=== PATIENT | male | born 1965 | race Two or more races ===

== ENCOUNTER 2018-11-08 17:46 | Inpatient (IN) | payer OTHER ==
[2018-11-08 18:36] VITALS: BMI 29.9
--- NOTE | 2018-11-08 21:01 | HP ---
CIWA Score Nausea/Vomitin-Mild Nausea/No Vomiting Muscle Tremors: 1-None Visible, but [place] Anxiety: 4-Mod. Anxious/Guarded Agitation: 4-Moderately Restless Paroxysmal Sweats: 1-Minimal Palms Moist Orientation: 3-Disoriented Date>2 days Tacttile Disturbances: 2-Mild Itch/Numbness/Burn Auditory Disturbances: 0-None Visual Disturbances: 1-Very Mild Sensitivity Headache: 2-Mild CIWA-Ar Total Score: 19 - Admission Criteria OASAS Guidelines: Admission for Medically Managed Detox: Requires at least one of the followin. CIWA greater than 12 2. Seizures within the past 24 hours 3. Delirium tremens within the past 24 hours 4. Hallucinations within the past 24 hours 5. Acute intervention needed for co occurring medical disorder 6. Acute intervention needed for co occurring psychiatric disorder 7. Severe withdrawal that cannot be handled at a lower level of care (continued vomiting, continued diarrhea, abnormal vital signs) requiring intravenous medication and/or fluids 8. Patient presents the following: CIWA greater than 12, Acute intervention needed for co-occurring med or psych disorder Admission Criteria Met: Admission criteria met Admission ROS [facility] Chief Complaint: C/O WORSENING WITHDRAWAL SX'S. SEEKING DETOX TXMENT FOR ALCOHOLISM Allergies/Adverse Reactions: Allergies Allergy/AdvReac Type Severity Reaction Status Date / Time Penicillins Allergy Verified 04/19/18 20:41 shellfish derived Allergy Verified 04/19/18 20:41 History of Present Illness: 52 Y.O. MALE WITH ALCOHOLISM HERE FOR DETOX. CLIENT IS KNOWN TO THIS PROGRAM. LAST ADMISSION FROM 04/19/18- 04/23/2018. HE IS SELF REFERRED TODAY. REPORTS LONGEST CLEAN TIME 8 MONTHS. DENIES ANY CLEAN TIME IN THE PAST YEAR. SEVERAL INAPTIENT ADMISSION BUT CONTINUES TO STRUGGLE WITH SOBRIETY WITH FREQUENT RELAPSING. HE IS ALSO OPIOID DEPENDENT. REPORTS HE IS ON METHADONE 50MG LAST MEDICATED TODAY AT [facility]. DENIES PAST/PRESENT SI/HI, AVH, SEIZURE D/O, DRUG OVERDOSE. CURRENTLY IN ASSISTED SYSTEM, UNEMPLOYED. DENIES LEGALS PMHX- ASTHMA, PSYCH- HX/O BIPOLAR Exam Limitations: No Limitations - Ebola screening Have you traveled outside of the country in the last 21 days: No (N) Have you had contact with anyone from an Ebola affected area: No Have you been sick,other than usual withdrawal symptoms: No Do you have a fever: No - Review of Systems Constitutional: Chills, Loss of Appetite, Malaise, Night Sweats EENT: reports: Dental Problems (MISSING TEETH) Respiratory: reports: Shortness of Breath Cardiac: reports: No Symptoms Reported GI: reports: Nausea, Poor Appetite, Poor Fluid Intake : reports: No Symptoms Reported Musculoskeletal: reports: Back Pain, Muscle Pain Integumentary: reports: No Symptoms Reported Neuro: reports: Tremors (FELT) Endocrine: reports: No Symptoms Reported Hematology: reports: No Symptoms Reported Psychiatric: reports: Anxious Other Systems: Reviewed and Negative Patient History - Patient Medical History Hx Anemia: No Hx Asthma: Yes Hx Chronic Obstructive Pulmonary Disease (COPD): No Hx Cancer: No Hx Cardiac Disorders: No Hx Congestive Heart Failure: No Hx Hypertension: No Hx Hypercholesterolemia: No Hx Pacemaker: No HX Cerebrovascular Accident: No Hx Seizures: No Hx Dementia: No Hx Diabetes: No Hx Gastrointestinal Disorders: No Hx Liver Disease: No Hx Genitourinary Disorders: No Hx Sexually Transmitted Disorders: No Hx Renal Disease (ESRD): No Hx Thyroid Disease: No Hx Human Immunodeficiency Virus (HIV): No Hx Hepatitis C: No Hx Depression: No Hx Suicide Attempt: No Hx Bipolar Disorder: Yes Hx Schizophrenia: No - Patient Surgical History Past Surgical History: Yes Other Surgical History: toncilectomy age 12 Anesthesia Reaction: No - PPD History Previous Implant?: Yes Documented Results: Negative w/o proof Implanted On Prior [facility] Admission?: Yes Date: 04/22/18 Results: NO READING DOCU PPD to be Administered?: Yes - Smoking Cessation Smoking history: Current every day smoker Have you smoked in the past 12 months: Yes Aproximately how many cigarettes per day: 10 Cigars Per Day: 0 Hx Chewing Tobacco Use: No Initiated information on smoking cessation: Yes 'Breaking Loose' booklet given: 11/08/18 - Substance & Tx. History Hx Alcohol Use: Yes Hx Substance Use: Yes Substance Use Type: Alcohol Hx Substance Use Treatment: Yes ([facility]) - Substances Abused LIQUOR Route: Oral Frequency: Daily Amount used: 1 PINT Age of first use: 20 Date of Last Use: 11/08/18 Family Disease History - Family Disease History Family Disease History: Other: Mother (, asthma ) Admission Physical Exam [facility] - Vital Signs Vital Signs: Vital Signs - 24 hr 11/08/18 18:35 Temperature 97.8 F Pulse Rate 94 H Respiratory 18 Rate Blood Pressure 121/90 - Physical General Appearance: Yes: Disheveled, Tremorous (FELT), Sweating (MOIST SKIN), Anxious, Other (MALODUROUS) HEENTM: Yes: EOMI, Normocephalic, Normal Voice, SCOUT, Pharynx Normal, Other ( POOR DENTITION, MISSING TEETH, DISCOLORED) Respiratory: Yes: Chest Non-Tender, Lungs Clear, Normal Breath Sounds, No Respiratory Distress, No Accessory Muscle Use Neck: Yes: No masses,lesions,Nodules, Supple, Trachea in good position Breast: Yes: Breast Exam Deferred Cardiology: Yes: Regular Rhythm, Regular Rate, S1, S2 Abdominal: Yes: Normal Bowel Sounds, Non Tender, Soft Genitourinary: Yes: Other (NO C/O OFFERED) Back: Yes: Normal Inspection Musculoskeletal: Yes: full range of Motion, Gait Steady Extremities: Yes: Normal Capillary Refill, Normal Range of Motion, Non-Tender, Tremors (FELT) 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: Yes: Alert, Motor Strength 5/5 Integumentary: Yes: Cold, Moist Lymphatic: Yes: Within Normal Limits - Diagnostic (1) At risk for dehydration due to poor fluid intake Current Visit: Yes Status: Acute (2) Alcohol dependence with withdrawal Current Visit: Yes Status: Acute Qualifiers: Complication of substance-induced condition: uncomplicated Qualified Code(s ): F10.230 - Alcohol dependence with withdrawal, uncomplicated (3) Asthma Current Visit: Yes Status: Chronic Qualifiers: Asthma severity: mild Asthma persistence: intermittent Asthma complication type: with acute exacerbation Qualified Code(s): J45.21 - Mild intermittent asthma with (acute) exacerbation (4) Opioid dependence on agonist therapy Current Visit: Yes Status: Chronic Comment: methadone 50 mg, dose pending verification Cleared for Admission S - Detox or Rehab [facility] Level of Care: Medically Managed Detox Regimen/Protocol: Zane Siued for Rehab Admission: No [facility] Breath Alcohol Content Breath Alcohol Content: 0 Urine Drug Screen - Results Drug Screen Negative: No Urine Drug Screen Results: MTD-Methadone
[2018-11-08] MEDS ORDERED: MAGNESIUM CITRATE 300 ML BOTTLE PO PRN (21:07)
[2018-11-08] MEDS ORDERED: NICOTINE POLACRILEX 2 MG GUM BC PRN (21:07)
[2018-11-08] MEDS ORDERED: chlordiazePOXIDE HCL 25 MG CAPSULE PO PRN (21:07)
[2018-11-08] MEDS ORDERED: guaiFENesin/D-METHORPHAN HB 10 ML UNIT-DOSE CUPS PO PRN (21:07)
[2018-11-08] MEDS ORDERED: MAGNESIUM HYDROX 2400MG/30ML ORAL SUSPENSION 30 ML CUP PO PRN (21:07)
[2018-11-08] MEDS ORDERED: MENTHOL/PHENOL 1 EACH UD MM PRN (21:07)
[2018-11-08] MEDS ORDERED: IBUPROFEN 400 MG TABLET (FP) PO PRN (21:07)
[2018-11-08] MEDS ORDERED: LOPERAMIDE HCL 2 MG CAPSULE PO PRN (21:07)
[2018-11-08] MEDS ORDERED: hydrOXYzine PAMOATE 50 MG CAPSULE (FP) PO PRN (21:07)
[2018-11-08] MEDS ORDERED: P-EPHED 60MG/TRIPROLIDI 2.5MG TABLET PO PRN (21:07)
[2018-11-08] MEDS ORDERED: ALBUTEROL SO4 8 GM HFA INHALER IH PRN (21:07)
[2018-11-08] MEDS ORDERED: ACETAMINOPHEN 325 MG TABLET (FP) PO PRN (21:07)
[2018-11-08] MEDS ORDERED: MAG HYDROX/AL HYDROX/SIMETH 30 ML UNIT-DOSE CUP PO PRN (21:07)
[2018-11-08] MEDS ORDERED: MELATONIN 5 MG TABLETS PO PRN (22:00)
[2018-11-09] MEDS: THIAMINE HCL 100 MG TABLET (FP) PO SCH ×2 (00:01→22:37)
[2018-11-09] MEDS: chlordiazePOXIDE HCL 25 MG CAPSULE PO SCH ×5 (00:02→22:37)
[2018-11-09] MEDS ORDERED: METHADONE 40 MG, METHADONE 10 MG PO ONE (10:00)
[2018-11-09] MEDS ORDERED: METHADONE HCL 10 MG TABLET PO ONE (10:00)
[2018-11-09 10:03] LABS: HEMATOCRIT 45.7 % (35.4-49); HEMOGLOBIN 15.4 GM/dL (11.7-16.9); MCH 29.6 pg (25.7-33.7); MCHC 33.7 g/dl (32.0-35.9); MEAN CELL VOLUME 87.9 fl (80-96); MEAN PLT VOLUME 7.6 fl (7.5-11.1); PLATELET COUNT 305 K/MM3 (134-434); RDW 13.5 % (11.9-15.9); WHITE BLOOD COUNT 9.6 K/mm3 (4.0-10.0)
[2018-11-09] MEDS ORDERED: METHADONE HCL 10 MG TABLET ONE (10:10)
[2018-11-09] MEDS: PRENATAL VITAMINS W/ FOLIC ACID TABLET (FP) PO SCH (10:10)
[2018-11-09] MEDS ORDERED: METHADONE HCL 40 MG DISPERSABLE TABLET ONE (10:11)
[2018-11-09] MEDS: NICOTINE 14 MG/24 HOURS TOPICAL PATCH TD SCH (10:11)
[2018-11-09 10:59] LABS: ALBUMIN 3.5 g/dl (3.4-5.0); ALK PHOS 102 U/L (45-117); ANION GAP 7 MMOL/L (8-16); BILIRUBIN,TOTAL 0.5 mg/dL (0.2-1); BLOOD UREA NITROGEN 24 mg/dL (7-18); CALCIUM 8.5 mg/dL (8.5-10.1); CHLORIDE 104 mmol/L (98-107); CO2 30 mmol/L (21-32); CREATININE 0.9 mg/dL (0.55-1.3); GLUCOSE,RANDOM 82 mg/dL (74-106); POTASSIUM 3.9 mmol/L (3.5-5.1); SGOT/AST 10 U/L (15-37); SGPT/ALT 16 U/L (13-61); SODIUM 141 mmol/L (136-145); TOT PROT 6.5 g/dl (6.4-8.2)
[2018-11-09] MEDS: RANITIDINE HCL 150 MG TABLET (FP) PO SCH ×2 (12:43→22:37)
[2018-11-09 23:01] LABS: URINE APPEARANCE TURBID; URINE BILIRUBIN NEGATIVE (<2.0 mg/dL); URINE COLOR YELLOW; URINE GLUCOSE (UA) NEGATIVE (NEGATIVE); URINE KETONE NEGATIVE (NEGATIVE); URINE LEUK ESTERASE NEGATIVE (NEGATIVE); URINE NITRITE NEGATIVE (NEGATIVE); URINE PROTEIN NEGATIVE (NEGATIVE)
[2018-11-10] MEDS ORDERED: METHADONE HCL 10 MG TABLET ONE (04:24)
[2018-11-10] MEDS ORDERED: METHADONE HCL 40 MG DISPERSABLE TABLET ONE (04:25)
[2018-11-10] MEDS: METHADONE 40 MG, METHADONE 10 MG PO SCH (05:05)
[2018-11-10] MEDS: chlordiazePOXIDE HCL 25 MG CAPSULE PO SCH ×3 (05:05→17:26)
[2018-11-10] MEDS ORDERED: METHADONE HCL 10 MG TABLET PO SCH (06:00)
[2018-11-10] MEDS: RANITIDINE HCL 150 MG TABLET (FP) PO SCH ×2 (10:15→22:41)
[2018-11-10] MEDS: PRENATAL VITAMINS W/ FOLIC ACID TABLET (FP) PO SCH (10:15)
[2018-11-10] MEDS: NICOTINE 14 MG/24 HOURS TOPICAL PATCH TD SCH (10:15)
[2018-11-10] MEDS ORDERED: TRIMETHOBENZAMIDE HCL 300 MG CAPSULE PO PRN (14:38)
--- NOTE | 2018-11-10 17:43 | PN ---
S CIWA - CIWA Score Nausea/Vomitin Muscle Tremors: None Anxiety: 0-No Anxiety, at Ease Agitation: 0-Normal Activity Paroxysmal Sweats: 3 Orientation: 0-Oriented Tacttile Disturbances: 1-Very Mild Itch/Numbness Auditory Disturbances: 1-Very Mild Visual Disturbances: 2-Mild Sensitivity Headache: 0-None Present CIWA-Ar Total Score: 10 [facility] Progress Note (SOAP) Subjective: Chills, Sweating, Interrupted Sleep, Nausea, Diarrhea. Objective: PATIENT A & O X 3, OBSERVED AMBULATING ON UNIT. IN NO ACUTE DISTRESS. 11/10/18 17:44 Vital Signs Temperature 97.2 F L 11/10/18 13:18 Pulse Rate 76 11/10/18 13:18 Respiratory Rate 18 11/10/18 13:18 Blood Pressure 145/90 11/10/18 13:18 O2 Sat by Pulse Oximetry (%) Laboratory Tests 11/09/18 11/09/18 11/09/18 07:00 07:00 07:00 WBC 9.6 RBC 5.20 Hgb 15.4 Hct 45.7 MCV 87.9 MCH 29.6 MCHC 33.7 RDW 13.5 Plt Count 305 MPV 7.6 Sodium 141 Potassium 3.9 Chloride 104 Carbon Dioxide 30 Anion Gap 7 L BUN 24 H Creatinine 0.9 Creat Clearance w eGFR > 60 Random Glucose 82 Calcium 8.5 Total Bilirubin 0.5 AST 10 L ALT 16 Alkaline Phosphatase 102 Total Protein 6.5 Albumin 3.5 Urine Color Urine Appearance Urine pH Ur Specific [place] Urine Protein Urine Glucose (UA) Urine Ketones Urine Blood Urine Nitrite Urine Bilirubin Urine Urobilinogen Ur Leukocyte Esterase RPR Titer Nonreactive 11/09/18 15:12 WBC RBC Hgb Hct MCV MCH MCHC RDW Plt Count MPV Sodium Potassium Chloride Carbon Dioxide Anion Gap BUN Creatinine Creat Clearance w eGFR Random Glucose Calcium Total Bilirubin AST ALT Alkaline Phosphatase Total Protein Albumin Urine Color Yellow Urine Appearance Turbid Urine pH 5.0 Ur Specific [place] 1.033 Urine Protein Negative Urine Glucose (UA) Negative Urine Ketones Negative Urine Blood Negative Urine Nitrite Negative Urine Bilirubin Negative Urine Urobilinogen 2.0 Ur Leukocyte Esterase Negative RPR Titer LABS NOTED. Assessment: 11/10/18 17:45 WITHDRAWAL SYMPTOMS. Plan: CONTINUE DETOX. INCREASE DAILY PO FLUID INTAKE. BP NOTED TO BE SLIGHTLY ELEVATED DURING AM VITAL SIGNS ASSESSMENT. WILL CONTINUE TO MONITOR.
[2018-11-10] MEDS: chlordiazePOXIDE 5 MG CAPSULE PO SCH (22:41)
[2018-11-10] MEDS: THIAMINE HCL 100 MG TABLET (FP) PO SCH (22:41)
[2018-11-11] MEDS ORDERED: METHADONE HCL 10 MG TABLET ONE (04:49)
[2018-11-11] MEDS ORDERED: METHADONE HCL 40 MG DISPERSABLE TABLET ONE (04:49)
[2018-11-11] MEDS: METHADONE 40 MG, METHADONE 10 MG PO SCH (05:40)
[2018-11-11] MEDS: chlordiazePOXIDE 5 MG CAPSULE PO SCH ×3 (05:41→17:56)
[2018-11-11] MEDS: RANITIDINE HCL 150 MG TABLET (FP) PO SCH ×2 (10:10→22:34)
[2018-11-11] MEDS: NICOTINE 14 MG/24 HOURS TOPICAL PATCH TD SCH (10:10)
[2018-11-11] MEDS: PRENATAL VITAMINS W/ FOLIC ACID TABLET (FP) PO SCH (10:10)
--- NOTE | 2018-11-11 15:22 | PN ---
S CIWA - CIWA Score Nausea/Vomitin Muscle Tremors: 2 Anxiety: 0-No Anxiety, at Ease Agitation: 0-Normal Activity Paroxysmal Sweats: 3 Orientation: 0-Oriented Tacttile Disturbances: 2-Mild Itch/Numbness/Burn Auditory Disturbances: 0-None Visual Disturbances: 0-None Headache: 3-Moderate CIWA-Ar Total Score: 13 S Progress Note (SOAP) Subjective: Sweating, H/A, Tremors, Diarrhea, Stomach Cramping, Nausea. Objective: PATIENT A & O X 3, OBSERVED AMBULATING ON UNIT. IN NO ACUTE DISTRESS. 11/11/18 15:19 Vital Signs Temperature 98.1 F 11/11/18 13:56 Pulse Rate 64 11/11/18 13:56 Respiratory Rate 16 11/11/18 13:56 Blood Pressure 133/81 11/11/18 13:56 O2 Sat by Pulse Oximetry (%) Laboratory Tests 11/09/18 11/09/18 11/09/18 07:00 07:00 07:00 WBC 9.6 RBC 5.20 Hgb 15.4 Hct 45.7 MCV 87.9 MCH 29.6 MCHC 33.7 RDW 13.5 Plt Count 305 MPV 7.6 Sodium 141 Potassium 3.9 Chloride 104 Carbon Dioxide 30 Anion Gap 7 L BUN 24 H Creatinine 0.9 Creat Clearance w eGFR > 60 Random Glucose 82 Calcium 8.5 Total Bilirubin 0.5 AST 10 L ALT 16 Alkaline Phosphatase 102 Total Protein 6.5 Albumin 3.5 Urine Color Urine Appearance Urine pH Ur Specific [place] Urine Protein Urine Glucose (UA) Urine Ketones Urine Blood Urine Nitrite Urine Bilirubin Urine Urobilinogen Ur Leukocyte Esterase RPR Titer Nonreactive 11/09/18 15:12 WBC RBC Hgb Hct MCV MCH MCHC RDW Plt Count MPV Sodium Potassium Chloride Carbon Dioxide Anion Gap BUN Creatinine Creat Clearance w eGFR Random Glucose Calcium Total Bilirubin AST ALT Alkaline Phosphatase Total Protein Albumin Urine Color Yellow Urine Appearance Turbid Urine pH 5.0 Ur Specific [place] 1.033 Urine Protein Negative Urine Glucose (UA) Negative Urine Ketones Negative Urine Blood Negative Urine Nitrite Negative Urine Bilirubin Negative Urine Urobilinogen 2.0 Ur Leukocyte Esterase Negative RPR Titer LABS NOTED. Assessment: 11/11/18 15:20 WITHDRAWAL SYMPTOMS. Plan: CONTINUE DETOX. INCREASE DAILY PO FLUID INTAKE. PRN IMMODIUM PO FOR DIARRHEA. PRN TIGAN PO FOR NASUEA.
[2018-11-11] MEDS: THIAMINE HCL 100 MG TABLET (FP) PO SCH (22:34)
[2018-11-11] MEDS: chlordiazePOXIDE HCL 10 MG CAPSULE PO SCH (22:34)
[2018-11-12] MEDS ORDERED: METHADONE HCL 40 MG DISPERSABLE TABLET ONE (03:26)
[2018-11-12] MEDS ORDERED: METHADONE HCL 10 MG TABLET ONE (03:26)
[2018-11-12] MEDS: chlordiazePOXIDE HCL 10 MG CAPSULE PO SCH ×2 (05:52→10:36)
[2018-11-12] MEDS: METHADONE 40 MG, METHADONE 10 MG PO SCH (05:52)
[2018-11-12] MEDS: PRENATAL VITAMINS W/ FOLIC ACID TABLET (FP) PO SCH (10:36)
[2018-11-12] MEDS: RANITIDINE HCL 150 MG TABLET (FP) PO SCH (10:36)
[2018-11-12] MEDS: NICOTINE 14 MG/24 HOURS TOPICAL PATCH TD SCH (10:36)
--- NOTE | 2018-11-12 14:28 | DS ---
[facility] Detox Discharge Summary Admission Date: 11/08/18 Discharge Date: 11/12/18 - History Present History: Alcohol Dependence, Opioid Dependence, MMTP Additional Comments: Patient is A/A/Ox3, in nad, vss, ambulatory. Patient requested to be discharged today even though his MMTP program might be closed tomorrow. Patient stated that he will be fine and just wants to be discharged today instead of waiting until tomorrow. Pertinent Past History: Asthma GERD - Physical Exam Results Vital Signs: Vital Signs Temperature 96.8 F L 11/12/18 10:00 Pulse Rate 73 11/12/18 10:00 Respiratory Rate 20 11/12/18 10:00 Blood Pressure 127/80 11/12/18 10:00 O2 Sat by Pulse Oximetry (%) Pertinent Admission Physical Exam Findings: Withdrawal symptoms Laboratory Tests 11/09/18 11/09/18 11/09/18 07:00 07:00 07:00 WBC 9.6 RBC 5.20 Hgb 15.4 Hct 45.7 MCV 87.9 MCH 29.6 MCHC 33.7 RDW 13.5 Plt Count 305 MPV 7.6 Sodium 141 Potassium 3.9 Chloride 104 Carbon Dioxide 30 Anion Gap 7 L BUN 24 H Creatinine 0.9 Creat Clearance w eGFR > 60 Random Glucose 82 Calcium 8.5 Total Bilirubin 0.5 AST 10 L ALT 16 Alkaline Phosphatase 102 Total Protein 6.5 Albumin 3.5 Urine Color Urine Appearance Urine pH Ur Specific [place] Urine Protein Urine Glucose (UA) Urine Ketones Urine Blood Urine Nitrite Urine Bilirubin Urine Urobilinogen Ur Leukocyte Esterase RPR Titer Nonreactive 11/09/18 15:12 WBC RBC Hgb Hct MCV MCH MCHC RDW Plt Count MPV Sodium Potassium Chloride Carbon Dioxide Anion Gap BUN Creatinine Creat Clearance w eGFR Random Glucose Calcium Total Bilirubin AST ALT Alkaline Phosphatase Total Protein Albumin Urine Color Yellow Urine Appearance Turbid Urine pH 5.0 Ur Specific [place] 1.033 Urine Protein Negative Urine Glucose (UA) Negative Urine Ketones Negative Urine Blood Negative Urine Nitrite Negative Urine Bilirubin Negative Urine Urobilinogen 2.0 Ur Leukocyte Esterase Negative RPR Titer Labs reviewed: bun 24 (encouraged PO water hydration) - Treatment Hospital Course: Detox Protocol Followed, Detoxed Safely, Responded well, Discharged Condition Good - Medication Discharge Medications: Ambulatory Orders Albuterol Sulfate Inhaler - [Ventolin HFA Inhaler -] 1 - 2 inh PO QID #1 inhaler 04/23/18 - Diagnosis (1) GERD (gastroesophageal reflux disease) Current Visit: Yes Status: Chronic (2) Bipolar disorder Current Visit: Yes Status: Chronic (3) Alcohol dependence with withdrawal Current Visit: Yes Status: Acute Qualifiers: Complication of substance-induced condition: uncomplicated Qualified Code(s ): F10.230 - Alcohol dependence with withdrawal, uncomplicated (4) Asthma Current Visit: Yes Status: Chronic Qualifiers: Asthma severity: mild Asthma persistence: intermittent Asthma complication type: with acute exacerbation Qualified Code(s): J45.21 - Mild intermittent asthma with (acute) exacerbation (5) Opioid dependence on agonist therapy Current Visit: Yes Status: Acute (6) Azotemia Current Visit: Yes Status: Acute - AMA Did Patient Leave Against Medical Advice: No (F/U with PCP within 1 week and with MMTP Program JEFF)
[2018-11-12 15:02] VITALS: BP 102/71; PULSE 68; TEMP 98.1
== END 2018-11-12 14:45 | disposition home or self-care (01) | DRG 773 ==
LOC: YASAS 17:46 → Y3N 22:32
PROVIDERS: ADMIT Neuromusculoskeletal Medicine & OMM; ATTEND Neuromusculoskeletal Medicine & OMM
PROC: HZ2ZZZZ Detoxification Services for Substance Abuse Treatment (ICD-10-PCS; principal; 2018-11-08)
DX: F10.230 Alcohol dependence with withdrawal, uncomplicated (principal); F11.20 Opioid dependence, uncomplicated; F17.210 Nicotine dependence, cigarettes, uncomplicated; F31.9 Bipolar disorder, unspecified; J45.21 Mild intermittent asthma with (acute) exacerbation; R79.89 Other specified abnormal findings of blood chemistry; R63.8 Other symptoms and signs concerning food and fluid intake; K21.9 Gastro-esophageal reflux disease without esophagitis
CPT/HCPCS: 36415; 80053; 81003; 85027; 86593

== ENCOUNTER 2018-12-15 16:36 | Inpatient (IN) | payer OTHER ==
[2018-12-15 18:29] VITALS: BMI 25.0
--- NOTE | 2018-12-15 21:39 | HP ---
CIWA Score Nausea/Vomitin-No Nausea/No Vomiting Muscle Tremors: 3 Anxiety: 4-Mod. Anxious/Guarded Agitation: 4-Moderately Restless Paroxysmal Sweats: 3 (Facial moisture) Orientation: 1-Uncertain about Date Tacttile Disturbances: 0-None Auditory Disturbances: 0-None Visual Disturbances: 0-None Headache: 0-None Present CIWA-Ar Total Score: 15 - Admission Criteria OAS Guidelines: Admission for Medically Managed Detox: Requires at least one of the followin. CIWA greater than 12 2. Seizures within the past 24 hours 3. Delirium tremens within the past 24 hours 4. Hallucinations within the past 24 hours 5. Acute intervention needed for co occurring medical disorder 6. Acute intervention needed for co occurring psychiatric disorder 7. Severe withdrawal that cannot be handled at a lower level of care (continued vomiting, continued diarrhea, abnormal vital signs) requiring intravenous medication and/or fluids 8. Patient presents the following: CIWA greater than 12 Admission Criteria Met: Admission criteria met Admission ROS [facility] Chief Complaint: Alcohol withdrawal. Allergies/Adverse Reactions: Allergies Allergy/AdvReac Type Severity Reaction Status Date / Time Penicillins Allergy Verified 12/15/18 21:15 shellfish derived Allergy Verified 12/15/18 21:15 History of Present Illness: States I'm here for detox for my alcohol use. I also need to work on stopping the other drugs. Alcohol use began at age 16 Nicotine use began at age [age]. PCP use began at age 18. (States uses about 2x/wk) Marijuana use began at age [age]. Xanax - use began at age [age] States uses 1-2 pills/week) Heroin use began at age 16. Currently on MMTP x 2 years. Denies opiate relapse in past month. Currently on [facility] MMTP and receiving Methadone 50 mg PO Daily. Urine tox negative for methadone, but states had methadone today at program. Recent detox completion on 11/12/18. States only able to maintain sobriety for 2 days. Last EKG @ [facility] on 04/19/18 showed Normal Sinus Rhythm. PPD 11/10/18 - 00 mm Hx Asthma. States last episode of SOB 2 weeks ago. Denies other significant PMH/PSH. Mental: "They say I'm bi-polar". Denies depression. Denies thoughts of harming self or others. Does not see a MH Provider. Search Terms: Gaurav Sheridan, 1965 Search Date: 12/15/2018 09:34:53 PM The Drug Utilization Report below displays all of the controlled substance prescriptions, if any, that your patient has filled in the last twelve months. The information displayed on this report is compiled from pharmacy submissions to the Department, and accurately reflects the information as submitted by the pharmacies. This report was requested by: Charlene Zamora | Reference #: [id number] There are no results for the search terms that you entered. Exam Limitations: No Limitations - Ebola screening Have you traveled outside of the country in the last 21 days: No (N) Have you had contact with anyone from an Ebola affected area: No Have you been sick,other than usual withdrawal symptoms: No Do you have a fever: No - Review of Systems Constitutional: Diaphoresis EENT: reports: Blurred Vision (Wears glasses), Dental Problems (Missing teeth. Chews and swallows ok.) Respiratory: reports: No Symptoms reported Cardiac: reports: No Symptoms Reported GI: reports: Indigestion (Acid reflux. Takes heart burn medication) : reports: No Symptoms Reported Musculoskeletal: reports: Back Pain (Occ LBP if sits or stands too long. States pain is achy and a "6". States pain relieved with pain medication.) Integumentary: reports: No Symptoms Reported Neuro: reports: Tingling (Tips of fingers off and on x 2 months), Tremors Endocrine: reports: No Symptoms Reported Hematology: reports: No Symptoms Reported Psychiatric: reports: Judgement Intact, Agitated, Anxious, other (Missed date by 1 day.) Patient History - Patient Medical History Hx Anemia: No Hx Asthma: No Hx Chronic Obstructive Pulmonary Disease (COPD): No Hx Cancer: No Hx Cardiac Disorders: No Hx Congestive Heart Failure: No Hx Hypertension: No Hx Hypercholesterolemia: No Hx Pacemaker: No HX Cerebrovascular Accident: No Hx Seizures: No Hx Dementia: No Hx Diabetes: No Hx Gastrointestinal Disorders: No Hx Liver Disease: No Hx Genitourinary Disorders: No Hx Sexually Transmitted Disorders: No Hx Renal Disease (ESRD): No Hx Thyroid Disease: No Hx Human Immunodeficiency Virus (HIV): No Hx Hepatitis C: No Hx Depression: Yes Hx Suicide Attempt: No Hx Bipolar Disorder: Yes Hx Schizophrenia: No - Patient Surgical History Past Surgical History: Yes Hx Neurologic Surgery: No Hx Cataract Extraction: No Hx Cardiac Surgery: No Hx Lung Surgery: No Hx Breast Surgery: No Hx Breast Biopsy: No Hx Abdominal Surgery: No Hx Appendectomy: No Hx Cholecystectomy: No Hx Genitourinary Surgery: No Hx Section: No Hx Orthopedic Surgery: No Other Surgical History: toncilectomy age 12 Anesthesia Reaction: No - PPD History Previous Implant?: Yes Documented Results: Negative w/proof Implanted On Prior [facility] Admission?: Yes Date: 11/10/18 PPD to be Administered?: No - Smoking Cessation Smoking history: Current every day smoker Have you smoked in the past 12 months: Yes Aproximately how many cigarettes per day: 10 Cigars Per Day: 0 Hx Chewing Tobacco Use: No Initiated information on smoking cessation: Yes 'Breaking Loose' booklet given: 12/15/18 - Substance & Tx. History Hx Alcohol Use: Yes Hx Substance Use: Yes Substance Use Type: Alcohol, Heroin Hx Substance Use Treatment: Yes (detox, MMTP) - Substances Abused Alcohol Route: Oral Frequency: Daily Amount used: 2 PINTS [place]ODKA Age of first use: 16 Date of Last Use: 12/15/18 Heroin Route: SNIFF Frequency: Daily Amount used: 5 BAGS Age of first use: 16 Date of Last Use: 12/12/18 Family Disease History - Family Disease History Family Disease History: Other: Mother (, asthma ) Admission Physical Exam [facility] - Vital Signs Vital Signs: Vital Signs - 24 hr 12/15/18 18:27 Temperature 98.6 F Pulse Rate 86 Respiratory 18 Rate Blood Pressure 136/82 - Physical General Appearance: Yes: Mild Distress, Tremorous, Irritable, Sweating (Facial Moisture), Anxious HEENTM: Yes: EOMI, Hearing grossly Normal, Normocephalic, Normal Voice, SCOUT, Other (Poor dentition - missing, broken, discolored teeth.) Respiratory: Yes: Chest Non-Tender, Lungs Clear, Normal Breath Sounds, No Respiratory Distress Neck: Yes: No masses,lesions,Nodules, Supple Breast: Yes: Breast Exam Deferred Cardiology: Yes: Regular Rhythm, Regular Rate, S1, S2 Abdominal: Yes: Non Tender, Soft, Increased Bowel Sounds Genitourinary: Yes: Within Normal Limits Back: Yes: Normal Inspection Musculoskeletal: Yes: full range of Motion, Gait Steady Extremities: Yes: Normal Capillary Refill, Normal Range of Motion, Tremors 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: Yes: sliver chopper II-XII NML intact, Alert, Motor Strength 5/5, Normal Mood /Affect Integumentary: Yes: Normal Color, Warm Lymphatic: Yes: Within Normal Limits - Diagnostic (1) Nicotine dependence, uncomplicated Current Visit: Yes Status: Chronic Qualifiers: Nicotine product type: cigarettes Qualified Code(s): F17.210 - Nicotine dependence, cigarettes, uncomplicated (2) PCP (phencyclidine) abuse Current Visit: Yes Status: Chronic (3) Alcohol dependence with withdrawal Current Visit: Yes Status: Acute Qualifiers: Complication of substance-induced condition: uncomplicated Qualified Code(s ): F10.230 - Alcohol dependence with withdrawal, uncomplicated (4) Methadone maintenance therapy patient Current Visit: Yes Status: Chronic (5) Asthma Current Visit: Yes Status: Chronic Qualifiers: Asthma severity: mild Asthma persistence: intermittent Asthma complication type: with acute exacerbation Qualified Code(s): J45.21 - Mild intermittent asthma with (acute) exacerbation (6) GERD (gastroesophageal reflux disease) Current Visit: Yes Status: Chronic Qualifiers: Esophagitis presence: esophagitis presence not specified Qualified Code(s) : K21.9 - Gastro-esophageal reflux disease without esophagitis (7) Cannabis use disorder, mild, abuse Current Visit: Yes Status: Chronic Cleared for Admission S - Detox or Rehab [facility] Level of Care: Medically Managed Detox Regimen/Protocol: Librium [facility] Breath Alcohol Content Breath Alcohol Content: 0 Urine Drug Screen - Results Drug Screen Negative: No Urine Drug Screen Results: THC-Marijuana, PCP-Phencyclidine, BZO-Benzodiazepines Inpatient Rehab Admission - Rehab Decision to Admit Inpatient rehab admission?: No
[2018-12-15] MEDS ORDERED: MELATONIN 5 MG TABLETS PO PRN (22:00)
[2018-12-15] MEDS ORDERED: ACETAMINOPHEN 325 MG TABLET (FP) PO PRN (22:34)
[2018-12-15] MEDS ORDERED: MENTHOL/PHENOL 1 EACH UD MM PRN (22:34)
[2018-12-15] MEDS ORDERED: MAGNESIUM CITRATE 300 ML BOTTLE PO PRN (22:34)
[2018-12-15] MEDS ORDERED: LOPERAMIDE HCL 2 MG CAPSULE PO PRN (22:34)
[2018-12-15] MEDS ORDERED: chlordiazePOXIDE HCL 25 MG CAPSULE PO PRN (22:34)
[2018-12-15] MEDS ORDERED: MAG HYDROX/AL HYDROX/SIMETH 30 ML UNIT-DOSE CUP PO PRN (22:34)
[2018-12-15] MEDS ORDERED: MAGNESIUM HYDROX 2400MG/30ML ORAL SUSPENSION 30 ML CUP PO PRN (22:34)
[2018-12-15] MEDS ORDERED: IBUPROFEN 400 MG TABLET (FP) PO PRN (22:34)
[2018-12-15] MEDS ORDERED: NICOTINE POLACRILEX 2 MG GUM BC PRN (22:39)
[2018-12-15] MEDS ORDERED: guaiFENesin 200 MG/10 ML 10 ML UNIT-DOSE CUPS PO PRN (22:44)
[2018-12-15] MEDS ORDERED: ALBUTEROL SO4 0.083% IH SOL 2.5 MG/3 ML VIAL.NEB. NEB PRN (22:44)
[2018-12-15] MEDS: chlordiazePOXIDE HCL 25 MG CAPSULE PO SCH (23:41)
[2018-12-16] MEDS: chlordiazePOXIDE HCL 25 MG CAPSULE PO SCH ×4 (05:55→22:46)
[2018-12-16] MEDS ORDERED: METHADONE HCL 10 MG TABLET PO SCH (08:45)
[2018-12-16] MEDS ORDERED: METHADONE 40 MG, METHADONE 10 MG PO SCH (09:15)
[2018-12-16] MEDS ORDERED: METHADONE HCL 10 MG TABLET ONE (10:20)
[2018-12-16] MEDS ORDERED: METHADONE HCL 40 MG DISPERSABLE TABLET ONE (10:21)
[2018-12-16 10:24] LABS: HEMATOCRIT 41.1 % (35.4-49); HEMOGLOBIN 13.7 GM/dL (11.7-16.9); MCH 29.6 pg (25.7-33.7); MCHC 33.5 g/dl (32.0-35.9); MEAN CELL VOLUME 88.5 fl (80-96); MEAN PLT VOLUME 7.6 fl (7.5-11.1); PLATELET COUNT 307 K/MM3 (134-434); RBC 4.64 M/mm3 (4.00-5.60); RDW 14.3 % (11.9-15.9); WHITE BLOOD COUNT 9.1 K/mm3 (4.0-10.0)
[2018-12-16 10:41] LABS: ALBUMIN 3.2 g/dl (3.4-5.0); ALK PHOS 101 U/L (45-117); ANION GAP 4 MMOL/L (8-16); BILIRUBIN,TOTAL 0.2 mg/dL (0.2-1); BLOOD UREA NITROGEN 13 mg/dL (7-18); CALCIUM 8.5 mg/dL (8.5-10.1); CHLORIDE 103 mmol/L (98-107); CO2 30 mmol/L (21-32); CREATININE 0.8 mg/dL (0.55-1.3); GLUCOSE,RANDOM 97 mg/dL (74-106); POTASSIUM 3.9 mmol/L (3.5-5.1); SGOT/AST 9 U/L (15-37); SGPT/ALT 14 U/L (13-61); SODIUM 137 mmol/L (136-145); TOT PROT 6.2 g/dl (6.4-8.2)
[2018-12-16] MEDS: METHADONE 40 MG, METHADONE 10 MG PO SCH (11:00)
[2018-12-16] MEDS: PRENATAL VITAMINS W/ FOLIC ACID TABLET (FP) PO SCH (11:00)
[2018-12-16] MEDS: NICOTINE 14 MG/24 HOURS TOPICAL PATCH TD SCH (11:03)
[2018-12-16] MEDS: PANTOPRAZOLE 20 MG TABLET (FP) PO SCH (12:48)
--- NOTE | 2018-12-16 14:52 | PN ---
[facility] CIWA - CIWA Score Nausea/Vomitin-Mild Nausea/No Vomiting Muscle Tremors: 3 Anxiety: 3 Agitation: 1-Slight > Activity Paroxysmal Sweats: 3 Orientation: 0-Oriented Tacttile Disturbances: 0-None Auditory Disturbances: 0-None Visual Disturbances: 0-None Headache: 0-None Present CIWA-Ar Total Score: 11 S Progress Note (SOAP) Subjective: shakes sweats lower back pain Objective: 12/16/18 14:49 A & O x 3 In bed, in no distress Vital Signs Temperature 97.7 F 12/16/18 13:09 Pulse Rate 53 L 12/16/18 13:09 Respiratory Rate 18 12/16/18 13:09 Blood Pressure 130/79 12/16/18 13:09 O2 Sat by Pulse Oximetry (%) Laboratory Last Values WBC 9.1 K/mm3 (4.0-10.0) 12/16/18 07:40 RBC 4.64 M/mm3 (4.00-5.60) 12/16/18 07:40 Hgb 13.7 GM/dL (11.7-16.9) 12/16/18 07:40 Hct 41.1 % (35.4-49) 12/16/18 07:40 MCV 88.5 fl (80-96) 12/16/18 07:40 MCH 29.6 pg (25.7-33.7) 12/16/18 07:40 MCHC 33.5 g/dl (32.0-35.9) 12/16/18 07:40 RDW 14.3 % (11.9-15.9) 12/16/18 07:40 Plt Count 307 K/MM3 (134-434) 12/16/18 07:40 MPV 7.6 fl (7.5-11.1) 12/16/18 07:40 Sodium 137 mmol/L (136-145) 12/16/18 07:40 Potassium 3.9 mmol/L (3.5-5.1) 12/16/18 07:40 Chloride 103 mmol/L (98-107) 12/16/18 07:40 Carbon Dioxide 30 mmol/L (21-32) 12/16/18 07:40 Anion Gap 4 MMOL/L (8-16) L 12/16/18 07:40 BUN 13 mg/dL (7-18) 12/16/18 07:40 Creatinine 0.8 mg/dL (0.55-1.3) 12/16/18 07:40 Creat Clearance w eGFR > 60 (>60) 12/16/18 07:40 Random Glucose 97 mg/dL (74-106) 12/16/18 07:40 Calcium 8.5 mg/dL (8.5-10.1) 12/16/18 07:40 Total Bilirubin 0.2 mg/dL (0.2-1) 12/16/18 07:40 AST 9 U/L (15-37) L 12/16/18 07:40 ALT 14 U/L (13-61) 12/16/18 07:40 Alkaline Phosphatase 101 U/L (45-117) 12/16/18 07:40 Total Protein 6.2 g/dl (6.4-8.2) L 12/16/18 07:40 Albumin 3.2 g/dl (3.4-5.0) L 12/16/18 07:40 RPR Titer Nonreactive (NONREACTIVE) 12/16/18 07:40 Assessment: 12/16/18 14:50 Withdrawal sx methadone maintenance verified Plan: Continue detox methadone maintenance ordered
[2018-12-16] MEDS: THIAMINE HCL 100 MG TABLET (FP) PO SCH (22:46)
[2018-12-17] MEDS ORDERED: METHADONE HCL 10 MG TABLET ONE (04:47)
[2018-12-17] MEDS ORDERED: METHADONE HCL 40 MG DISPERSABLE TABLET ONE (04:48)
[2018-12-17] MEDS: chlordiazePOXIDE HCL 25 MG CAPSULE PO SCH ×3 (05:06→17:34)
[2018-12-17] MEDS: METHADONE 40 MG, METHADONE 10 MG PO SCH (05:06)
--- NOTE | 2018-12-17 09:14 | PN ---
S CIWA - CIWA Score Nausea/Vomitin-Mild Nausea/No Vomiting Muscle Tremors: 2 Anxiety: 2 Agitation: 2 Paroxysmal Sweats: 1-Minimal Palms Moist Orientation: 0-Oriented Tacttile Disturbances: 0-None Auditory Disturbances: 0-None Visual Disturbances: 0-None Headache: 1-Very Mild CIWA-Ar Total Score: 9 BHS Progress Note (SOAP) Subjective: tremor sweating otherwise feeling ok but right hand finger from bit "days" ago reported had tetanus shot within 3 years Objective: 12/17/18 09:11 Vital Signs Temperature 98.1 F 12/17/18 06:11 Pulse Rate 55 L 12/17/18 06:11 Respiratory Rate 18 12/17/18 06:11 Blood Pressure 134/83 12/17/18 06:11 O2 Sat by Pulse Oximetry (%) Laboratory Last Values WBC 9.1 K/mm3 (4.0-10.0) 12/16/18 07:40 RBC 4.64 M/mm3 (4.00-5.60) 12/16/18 07:40 Hgb 13.7 GM/dL (11.7-16.9) 12/16/18 07:40 Hct 41.1 % (35.4-49) 12/16/18 07:40 MCV 88.5 fl (80-96) 12/16/18 07:40 MCH 29.6 pg (25.7-33.7) 12/16/18 07:40 MCHC 33.5 g/dl (32.0-35.9) 12/16/18 07:40 RDW 14.3 % (11.9-15.9) 12/16/18 07:40 Plt Count 307 K/MM3 (134-434) 12/16/18 07:40 MPV 7.6 fl (7.5-11.1) 12/16/18 07:40 Sodium 137 mmol/L (136-145) 12/16/18 07:40 Potassium 3.9 mmol/L (3.5-5.1) 12/16/18 07:40 Chloride 103 mmol/L (98-107) 12/16/18 07:40 Carbon Dioxide 30 mmol/L (21-32) 12/16/18 07:40 Anion Gap 4 MMOL/L (8-16) L 12/16/18 07:40 BUN 13 mg/dL (7-18) 12/16/18 07:40 Creatinine 0.8 mg/dL (0.55-1.3) 12/16/18 07:40 Creat Clearance w eGFR > 60 (>60) 12/16/18 07:40 Random Glucose 97 mg/dL (74-106) 12/16/18 07:40 Calcium 8.5 mg/dL (8.5-10.1) 12/16/18 07:40 Total Bilirubin 0.2 mg/dL (0.2-1) 12/16/18 07:40 AST 9 U/L (15-37) L 12/16/18 07:40 ALT 14 U/L (13-61) 12/16/18 07:40 Alkaline Phosphatase 101 U/L (45-117) 12/16/18 07:40 Total Protein 6.2 g/dl (6.4-8.2) L 12/16/18 07:40 Albumin 3.2 g/dl (3.4-5.0) L 12/16/18 07:40 RPR Titer Nonreactive (NONREACTIVE) 12/16/18 07:40 lab noted Assessment: 12/17/18 09:12 alcohol withdrawal sx 12/17/18 09:12 right hand finger care daily patient preferred to self manage the finger Plan: continue detox bacitracin oint to finger patient agrees to allow the continuity writer to examine the finger when he change the dressing
[2018-12-17] MEDS: PRENATAL VITAMINS W/ FOLIC ACID TABLET (FP) PO SCH (10:16)
[2018-12-17] MEDS: BACITRACIN 0.9 GM PACKET TP SCH (10:16)
[2018-12-17] MEDS: PANTOPRAZOLE 20 MG TABLET (FP) PO SCH (10:16)
[2018-12-17] MEDS: NICOTINE 14 MG/24 HOURS TOPICAL PATCH TD SCH (10:17)
[2018-12-17 17:27] LABS: URINE APPEARANCE CLEAR; URINE BILIRUBIN NEGATIVE (<2.0 mg/dL); URINE COLOR LTYELLOW; URINE GLUCOSE (UA) NEGATIVE (NEGATIVE); URINE KETONE NEGATIVE (NEGATIVE); URINE LEUK ESTERASE NEGATIVE (NEGATIVE); URINE NITRITE NEGATIVE (NEGATIVE); URINE PROTEIN NEGATIVE (NEGATIVE); URINE UROBILINOGEN NEGATIVE mg/dL (0.2-1.0)
[2018-12-17] MEDS: THIAMINE HCL 100 MG TABLET (FP) PO SCH (22:33)
[2018-12-17] MEDS: chlordiazePOXIDE 5 MG CAPSULE PO SCH (22:33)
[2018-12-18] MEDS ORDERED: METHADONE HCL 10 MG TABLET ONE (04:45)
[2018-12-18] MEDS ORDERED: METHADONE HCL 40 MG DISPERSABLE TABLET ONE (04:46)
[2018-12-18] MEDS: METHADONE 40 MG, METHADONE 10 MG PO SCH (05:52)
[2018-12-18] MEDS: chlordiazePOXIDE 5 MG CAPSULE PO SCH ×3 (05:53→18:02)
[2018-12-18] MEDS: PRENATAL VITAMINS W/ FOLIC ACID TABLET (FP) PO SCH (10:06)
[2018-12-18] MEDS: PANTOPRAZOLE 20 MG TABLET (FP) PO SCH (10:07)
[2018-12-18] MEDS: NICOTINE 14 MG/24 HOURS TOPICAL PATCH TD SCH (10:08)
[2018-12-18] MEDS: BACITRACIN 0.9 GM PACKET TP SCH (10:08)
--- NOTE | 2018-12-18 10:25 | PN ---
[facility] CIWA - CIWA Score Nausea/Vomitin-No Nausea/No Vomiting Muscle Tremors: 1-None Visible, but [place] Anxiety: 1-Mildly Anxious Agitation: 1-Slight > Activity Paroxysmal Sweats: 1-Minimal Palms Moist Orientation: 0-Oriented Tacttile Disturbances: 0-None Auditory Disturbances: 0-None Visual Disturbances: 0-None Headache: 1-Very Mild CIWA-Ar Total Score: 5 S Progress Note (SOAP) Subjective: feeling better less tremor mild sweating discuss aftercare with staff patient preferred return to methadone program for medical mental issues Objective: 12/18/18 10:24 Vital Signs Temperature 97.6 F 12/18/18 09:34 Pulse Rate 73 12/18/18 09:34 Respiratory Rate 18 12/18/18 09:34 Blood Pressure 143/92 12/18/18 09:34 O2 Sat by Pulse Oximetry (%) Laboratory Last Values WBC 9.1 K/mm3 (4.0-10.0) 12/16/18 07:40 RBC 4.64 M/mm3 (4.00-5.60) 12/16/18 07:40 Hgb 13.7 GM/dL (11.7-16.9) 12/16/18 07:40 Hct 41.1 % (35.4-49) 12/16/18 07:40 MCV 88.5 fl (80-96) 12/16/18 07:40 MCH 29.6 pg (25.7-33.7) 12/16/18 07:40 MCHC 33.5 g/dl (32.0-35.9) 12/16/18 07:40 RDW 14.3 % (11.9-15.9) 12/16/18 07:40 Plt Count 307 K/MM3 (134-434) 12/16/18 07:40 MPV 7.6 fl (7.5-11.1) 12/16/18 07:40 Sodium 137 mmol/L (136-145) 12/16/18 07:40 Potassium 3.9 mmol/L (3.5-5.1) 12/16/18 07:40 Chloride 103 mmol/L (98-107) 12/16/18 07:40 Carbon Dioxide 30 mmol/L (21-32) 12/16/18 07:40 Anion Gap 4 MMOL/L (8-16) L 12/16/18 07:40 BUN 13 mg/dL (7-18) 12/16/18 07:40 Creatinine 0.8 mg/dL (0.55-1.3) 12/16/18 07:40 Creat Clearance w eGFR > 60 (>60) 12/16/18 07:40 Random Glucose 97 mg/dL (74-106) 12/16/18 07:40 Calcium 8.5 mg/dL (8.5-10.1) 12/16/18 07:40 Total Bilirubin 0.2 mg/dL (0.2-1) 12/16/18 07:40 AST 9 U/L (15-37) L 12/16/18 07:40 ALT 14 U/L (13-61) 12/16/18 07:40 Alkaline Phosphatase 101 U/L (45-117) 12/16/18 07:40 Total Protein 6.2 g/dl (6.4-8.2) L 12/16/18 07:40 Albumin 3.2 g/dl (3.4-5.0) L 12/16/18 07:40 Urine Color Ltyellow 12/17/18 08:36 Urine Appearance Clear 12/17/18 08:36 Urine pH 7.0 (5.0-8.0) D 12/17/18 08:36 Ur Specific Gay 1.013 (1.010-1.035) 12/17/18 08:36 Urine Protein Negative (NEGATIVE) 12/17/18 08:36 Urine Glucose (UA) Negative (NEGATIVE) 12/17/18 08:36 Urine Ketones Negative (NEGATIVE) 12/17/18 08:36 Urine Blood Negative (NEGATIVE) 12/17/18 08:36 Urine Nitrite Negative (NEGATIVE) 12/17/18 08:36 Urine Bilirubin Negative (<2.0 mg/dL) 12/17/18 08:36 Urine Urobilinogen Negative mg/dL (0.2-1.0) 12/17/18 08:36 Ur Leukocyte Esterase Negative (NEGATIVE) 12/17/18 08:36 RPR Titer Nonreactive (NONREACTIVE) 12/16/18 07:40 lab noted Assessment: 12/18/18 10:24 mild withdrawal sx Plan: continue detox
[2018-12-18] MEDS: chlordiazePOXIDE HCL 10 MG CAPSULE PO SCH (22:11)
[2018-12-18] MEDS: THIAMINE HCL 100 MG TABLET (FP) PO SCH (22:11)
[2018-12-19] MEDS: chlordiazePOXIDE HCL 10 MG CAPSULE PO SCH (05:06)
[2018-12-19 06:27] VITALS: BP 129/98; PULSE 64; TEMP 97.2
[2018-12-19] MEDS ORDERED: METHADONE HCL 10 MG TABLET ONE (07:18)
[2018-12-19] MEDS ORDERED: METHADONE HCL 40 MG DISPERSABLE TABLET ONE (07:18)
[2018-12-19] MEDS: METHADONE 40 MG, METHADONE 10 MG PO SCH (07:39)
--- NOTE | 2018-12-19 10:13 | DS ---
[facility] Detox Discharge Summary Admission Date: 12/15/18 Discharge Date: 12/19/18 - History Present History: Alcohol Dependence Additional Comments: 53 years old male admitted on 12/15/18 for alcohol withdrawal stabilization completed detox regimen aftercare [facility] Pertinent Past History: bring-in medication list and bottles to aftercare appointment update medication list when change medication keep medication list in wallet important of adherence with medication patient agrees to return to methadone maintenance treatment program for medical and mental issues - Physical Exam Results Vital Signs: Vital Signs Temperature 97.2 F L 12/19/18 06:26 Pulse Rate 64 12/19/18 06:26 Respiratory Rate 18 12/19/18 06:26 Blood Pressure 129/98 12/19/18 06:26 O2 Sat by Pulse Oximetry (%) Pertinent Admission Physical Exam Findings: alcohol withdrawal sx Laboratory Last Values WBC 9.1 K/mm3 (4.0-10.0) 12/16/18 07:40 RBC 4.64 M/mm3 (4.00-5.60) 12/16/18 07:40 Hgb 13.7 GM/dL (11.7-16.9) 12/16/18 07:40 Hct 41.1 % (35.4-49) 12/16/18 07:40 MCV 88.5 fl (80-96) 12/16/18 07:40 MCH 29.6 pg (25.7-33.7) 12/16/18 07:40 MCHC 33.5 g/dl (32.0-35.9) 12/16/18 07:40 RDW 14.3 % (11.9-15.9) 12/16/18 07:40 Plt Count 307 K/MM3 (134-434) 12/16/18 07:40 MPV 7.6 fl (7.5-11.1) 12/16/18 07:40 Sodium 137 mmol/L (136-145) 12/16/18 07:40 Potassium 3.9 mmol/L (3.5-5.1) 12/16/18 07:40 Chloride 103 mmol/L (98-107) 12/16/18 07:40 Carbon Dioxide 30 mmol/L (21-32) 12/16/18 07:40 Anion Gap 4 MMOL/L (8-16) L 12/16/18 07:40 BUN 13 mg/dL (7-18) 12/16/18 07:40 Creatinine 0.8 mg/dL (0.55-1.3) 12/16/18 07:40 Creat Clearance w eGFR > 60 (>60) 12/16/18 07:40 POC Glucometer 122 UNITS (80-120) 12/19/18 05:08 Random Glucose 97 mg/dL (74-106) 12/16/18 07:40 Calcium 8.5 mg/dL (8.5-10.1) 12/16/18 07:40 Total Bilirubin 0.2 mg/dL (0.2-1) 12/16/18 07:40 AST 9 U/L (15-37) L 12/16/18 07:40 ALT 14 U/L (13-61) 12/16/18 07:40 Alkaline Phosphatase 101 U/L (45-117) 12/16/18 07:40 Total Protein 6.2 g/dl (6.4-8.2) L 12/16/18 07:40 Albumin 3.2 g/dl (3.4-5.0) L 12/16/18 07:40 Urine Color Ltyellow 12/17/18 08:36 Urine Appearance Clear 12/17/18 08:36 Urine pH 7.0 (5.0-8.0) D 12/17/18 08:36 Ur Specific [place] 1.013 (1.010-1.035) 12/17/18 08:36 Urine Protein Negative (NEGATIVE) 12/17/18 08:36 Urine Glucose (UA) Negative (NEGATIVE) 12/17/18 08:36 Urine Ketones Negative (NEGATIVE) 12/17/18 08:36 Urine Blood Negative (NEGATIVE) 12/17/18 08:36 Urine Nitrite Negative (NEGATIVE) 12/17/18 08:36 Urine Bilirubin Negative (<2.0 mg/dL) 12/17/18 08:36 Urine Urobilinogen Negative mg/dL (0.2-1.0) 12/17/18 08:36 Ur Leukocyte Esterase Negative (NEGATIVE) 12/17/18 08:36 RPR Titer Nonreactive (NONREACTIVE) 12/16/18 07:40 lab noted - Treatment Hospital Course: Detox Protocol Followed, Detoxed Safely, Responded well, Discharged Condition Good, Rehab Referral Accepted Patient has Accepted a Rehab Referral to: [facility] - Medication Discharge Medications: Ambulatory Orders Albuterol Sulfate Inhaler - [Ventolin HFA Inhaler -] 1 - 2 inh PO QID #1 inhaler 12/18/18 - Diagnosis (1) Alcohol dependence with withdrawal Status: Acute Qualifiers: Complication of substance-induced condition: uncomplicated Qualified Code(s ): F10.230 - Alcohol dependence with withdrawal, uncomplicated (2) Substance induced mood disorder Status: Suspected (3) Asthma Status: Chronic Qualifiers: Asthma severity: mild Asthma persistence: intermittent Asthma complication type: with status asthmaticus Qualified Code(s): J45.22 - Mild intermittent asthma with status asthmaticus (4) GERD (gastroesophageal reflux disease) Status: Chronic Qualifiers: Esophagitis presence: esophagitis presence not specified Qualified Code(s) : K21.9 - Gastro-esophageal reflux disease without esophagitis (5) Methadone maintenance therapy patient Status: Chronic - AMA Did Patient Leave Against Medical Advice: No
== END 2018-12-19 09:14 | disposition home or self-care (01) | DRG 773 ==
LOC: YASAS 16:36 → Y3N 20:39
PROVIDERS: ADMIT Surgery; ATTEND Surgery
PROC: HZ2ZZZZ Detoxification Services for Substance Abuse Treatment (ICD-10-PCS; principal; 2018-12-15)
DX: F10.230 Alcohol dependence with withdrawal, uncomplicated (principal); F11.20 Opioid dependence, uncomplicated; F16.10 Hallucinogen abuse, uncomplicated; F12.10 Cannabis abuse, uncomplicated; F19.24 Other psychoactive substance dependence with psychoactive substance-induced mood disorder; F32.9 Major depressive disorder, single episode, unspecified; J45.22 Mild intermittent asthma with status asthmaticus; K21.9 Gastro-esophageal reflux disease without esophagitis
CPT/HCPCS: 36415; 80053; 81003; 82962; 85027; 86593

== ENCOUNTER 2019-01-08 14:56 | Inpatient (IN) | payer OTHER ==
[2019-01-08 16:45] VITALS: BMI 25.7
--- NOTE | 2019-01-08 17:21 | HP ---
COWS - Scale Resting Pulse: 0= [place] 80 or Below Sweatin= Chills/Flushing Restless Observation: 1= Difficult to Sit Still Pupil Size: 1= Pupils >than Normal Bone or Joint Aches: 1= Mild Discomfort Runny Nose/ Eye Tearin= Constantly Teary/Runny GI Upset > 30mins: 3= Vomiting/Diarrhea Tremor Observation: 1= Tremor [place], Not Seen Yawning Observation: 1= 1-2x During Session Anxiety or Irritability: 2=Irritable/Anxious Goose Flesh Skin: 0=Smooth Skin COWS Score: 15 CIWA Score Nausea/Vomitin-Int. Nausea w/Dry Heave Muscle Tremors: 2 Anxiety: 3 Agitation: 0-Normal Activity Paroxysmal Sweats: 2 Orientation: 1-Uncertain about Date Tacttile Disturbances: 2-Mild Itch/Numbness/Burn (finger tips left hand) Auditory Disturbances: 1-Very Mild Visual Disturbances: 1-Very Mild Sensitivity Headache: 2-Mild CIWA-Ar Total Score: 18 - Admission Criteria [facility]ASAS Guidelines: Admission for Medically Managed Detox: Requires at least one of the followin. CIWA greater than 12 2. Seizures within the past 24 hours 3. Delirium tremens within the past 24 hours 4. Hallucinations within the past 24 hours 5. Acute intervention needed for co occurring medical disorder 6. Acute intervention needed for co occurring psychiatric disorder 7. Severe withdrawal that cannot be handled at a lower level of care (continued vomiting, continued diarrhea, abnormal vital signs) requiring intravenous medication and/or fluids 8. Admission ROS S - [facility] Chief Complaint: " alcohol and heroin detox, I want to go back to a methadone program" Allergies/Adverse Reactions: Allergies Allergy/AdvReac Type Severity Reaction Status Date / Time Penicillins Allergy Verified 01/08/19 17:09 shellfish derived Allergy Verified 01/08/19 17:09 History of Present Illness: 53 yo male with hx of alcohol and heroin (nasal) dependence is here seeking detox. Last detox [facility] 12/15/18 - 12/19/18. Patient reports he was discharge from his methadone program at [facility] and was referred to [facility] in which he was discharged about three weeks ago. Utox positive for opi, bup, benzo, thc. Patient reports taking occasional street buprenorphine to prevent withdrawals, last use yesterday AM unknown dose. PMHX: GERD, Asthma,weight loss , chronic back pain. Psych hx: bipolar. Denies suicidal / homicidal ideation. Denies hx of seizures or overdose Exam Limitations: No Limitations - Ebola screening Have you traveled outside of the country in the last 21 days: No Have you had contact with anyone from an Ebola affected area: No Have you been sick,other than usual withdrawal symptoms: No Do you have a fever: No - Review of Systems Constitutional: Chills, Diaphoresis, Loss of Appetite, Changes in sleep, Weakness, Unintentional Wgt. Loss (7 - 15 lbs) EENT: reports: Dental Problems (missing teeth) Respiratory: reports: No Symptoms reported Cardiac: reports: No Symptoms Reported GI: reports: Diarrhea, Nausea, Poor Appetite, Poor Fluid Intake, Vomiting : reports: No Symptoms Reported Musculoskeletal: reports: Back Pain Integumentary: reports: No Symptoms Reported Neuro: reports: Numbness (finger tips) Endocrine: reports: Increased Thirst Hematology: reports: No Symptoms Reported Psychiatric: reports: Orientated x3, Anxious Other Systems: Reviewed and Negative Patient History - Patient Medical History Hx Anemia: No Hx Asthma: No Hx Chronic Obstructive Pulmonary Disease (COPD): No Hx Cancer: No Hx Cardiac Disorders: No Hx Congestive Heart Failure: No Hx Hypertension: No Hx Hypercholesterolemia: No Hx Pacemaker: No HX Cerebrovascular Accident: No Hx Seizures: No Hx Dementia: No Hx Diabetes: No Hx Gastrointestinal Disorders: No Hx Liver Disease: No Hx Genitourinary Disorders: No Hx Sexually Transmitted Disorders: No Hx Renal Disease (ESRD): No Hx Thyroid Disease: No Hx Human Immunodeficiency Virus (HIV): No Hx Hepatitis C: No Hx Depression: Yes Hx Suicide Attempt: No Hx Bipolar Disorder: Yes Hx Schizophrenia: No - Patient Surgical History Past Surgical History: Yes Hx Neurologic Surgery: No Hx Cataract Extraction: No Hx Cardiac Surgery: No Hx Lung Surgery: No Hx Breast Surgery: No Hx Breast Biopsy: No Hx Abdominal Surgery: No Hx Appendectomy: No Hx Cholecystectomy: No Hx Genitourinary Surgery: No Hx Section: No Hx Orthopedic Surgery: No Other Surgical History: toncilectomy age 12 Anesthesia Reaction: No - PPD History Previous Implant?: No Documented Results: Negative w/proof Date: 11/10/18 PPD to be Administered?: Yes - Smoking Cessation Smoking history: Current every day smoker Have you smoked in the past 12 months: Yes Aproximately how many cigarettes per day: 10 Cigars Per Day: 0 Hx Chewing Tobacco Use: No Initiated information on smoking cessation: Yes 'Breaking Loose' booklet given: 01/08/19 - Substance & Tx. History Hx Alcohol Use: Yes Hx Substance Use: Yes Substance Use Type: Alcohol, Heroin Hx Substance Use Treatment: Yes (Detox [facility] 12/15/18 - 12/19/18) - Substances Abused Alcohol Route: Oral Frequency: Daily Amount used: liquor- 1 pint, beer- 1 case Age of first use: 17 Date of Last Use: 01/07/19 heroin Route: Inhalation Frequency: Daily Amount used: 3 - 4 bags Age of first use: 18 Date of Last Use: 01/07/19 Family Disease History - Family Disease History Family Disease History: Other: Father (heroin ), Mother (heroin overdose , asthma ) Admission Physical Exam [facility] - Vital Signs Vital Signs: Vital Signs - 24 hr 01/08/19 16:43 Temperature 98.5 F Pulse Rate 77 Respiratory 18 Rate Blood Pressure 113/62 - Physical General Appearance: Yes: Disheveled, Mild Distress, Thin, Sweating, Anxious HEENTM: Yes: EOMI, Hearing grossly Normal, Normal ENT Inspection, Normocephalic , Normal Voice, Pharynx Normal, Tm's normal, Rhinorrhea, Other (poor dentition, dry mucous membranes) Respiratory: Yes: Chest Non-Tender, Lungs Clear, Normal Breath Sounds, No Respiratory Distress, No Accessory Muscle Use Neck: Yes: Within Normal Limits Breast: Yes: Breast Exam Deferred Cardiology: Yes: Regular Rhythm, Regular Rate Abdominal: Yes: Normal Bowel Sounds, Non Tender, Flat, Soft Genitourinary: Yes: Within Normal Limits Back: Yes: Normal Inspection Musculoskeletal: Yes: full range of Motion, Gait Steady, Pelvis Stable, Back pain Extremities: Yes: Within Normal Limits 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: Yes: 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, Fully Oriented, Alert, Motor Strength 5/5, Normal Mood/Affect (anxious), Depressed Affect Integumentary: Yes: Normal Color, Warm, Diaphoresis Lymphatic: Yes: Within Normal Limits - Diagnostic (1) Opioid dependence with withdrawal Current Visit: Yes Status: Acute (2) Alcohol dependence with withdrawal Current Visit: No Status: Acute Qualifiers: Complication of substance-induced condition: uncomplicated Qualified Code(s ): F10.230 - Alcohol dependence with withdrawal, uncomplicated (3) At risk for dehydration due to poor fluid intake Current Visit: No Status: Acute (4) Back pain with sciatica Current Visit: No Status: Acute (5) Weight loss Current Visit: No Status: Acute Cleared for Admission [facility] - Detox or Rehab [facility] Level of Care: Medically Managed Detox Regimen/Protocol: Methadone/Librium [facility] Breath Alcohol Content Breath Alcohol Content: 0 Urine Drug Screen - Results Drug Screen Negative: No Urine Drug Screen Results: THC-Marijuana, OPI-Opiates, BZO-Benzodiazepines, BUP- Suboxone Inpatient Rehab Admission - Rehab Decision to Admit Inpatient rehab admission?: No
[2019-01-08] MEDS ORDERED: chlordiazePOXIDE HCL 25 MG CAPSULE PO PRN (17:30)
[2019-01-08] MEDS ORDERED: cloNIDine HCL 0.1 MG TABLET PO PRN (17:30)
[2019-01-08] MEDS ORDERED: ALBUTEROL SO4 8 GM HFA INHALER IH PRN (17:32)
[2019-01-08] MEDS ORDERED: METHADONE HCL 10 MG TABLET (FOR DETOX USE ONLY) PO ONE ×2 (18:00→23:00)
[2019-01-08] MEDS: chlordiazePOXIDE HCL 25 MG CAPSULE PO SCH (22:39)
[2019-01-09] MEDS ORDERED: MAG HYDROX/AL HYDROX/SIMETH 30 ML UNIT-DOSE CUP PO PRN (00:23)
[2019-01-09] MEDS ORDERED: MAGNESIUM CITRATE 300 ML BOTTLE PO PRN (00:23)
[2019-01-09] MEDS ORDERED: METHOCARBAMOL 500 MG TABLET PO PRN (00:23)
[2019-01-09] MEDS ORDERED: BISMUTH SUBSALICYLATE 524 MG/30 ML UD PO PRN (00:23)
[2019-01-09] MEDS ORDERED: NICOTINE POLACRILEX 2 MG GUM BUC PRN (00:23)
[2019-01-09] MEDS ORDERED: ACETAMINOPHEN 325 MG TABLET (FP) PO PRN ×2 (00:23)
[2019-01-09] MEDS ORDERED: MENTHOL/PHENOL 1 EACH UD MM PRN (00:23)
[2019-01-09] MEDS ORDERED: IBUPROFEN 400 MG TABLET (FP) PO PRN (00:23)
[2019-01-09] MEDS ORDERED: MAGNESIUM HYDROX 2400MG/30ML ORAL SUSPENSION 30 ML CUP PO PRN (00:23)
[2019-01-09] MEDS ORDERED: MELATONIN 5 MG TABLETS PO PRN (00:23)
[2019-01-09] MEDS: chlordiazePOXIDE HCL 25 MG CAPSULE PO SCH ×4 (05:47→22:31)
--- NOTE | 2019-01-09 09:27 | PN ---
S CIWA - CIWA Score Nausea/Vomitin Muscle Tremors: 2 Anxiety: 2 Agitation: 2 Paroxysmal Sweats: 1-Minimal Palms Moist Orientation: 0-Oriented Tacttile Disturbances: 1-Very Mild Itch/Numbness Auditory Disturbances: 1-Very Mild Visual Disturbances: 0-None Headache: 2-Mild CIWA-Ar Total Score: 13 BHS COWS - Scale Resting Pulse: 0= [place] 80 or Below Sweatin= Chills/Flushing Restless Observation: 1= Difficult to Sit Still Pupil Size: 1= Pupils >than Normal Bone or Joint Aches: 2= Severe Diffuse Aches Runny Nose/ Eye Tearin= Nasal Congestion GI Upset > 30mins: 2= Nausea/Diarrhea Tremor Observation of Outstretched Hands: 2= Slight Tremor Visible Yawning Observation: 1= 1-2x During Session Anxiety or Irritability: 2=Irritable/Anxious Goose Flesh Skin: 0=Smooth Skin COWS Score: 13 S Progress Note (SOAP) Subjective: alert,irritable,anxious,interrupted sleep,pain in the back,body,tremor Objective: 01/09/19 09:26 Vital Signs Temperature 98.6 F 01/09/19 09:19 Pulse Rate 61 01/09/19 09:19 Respiratory Rate 18 01/09/19 09:19 Blood Pressure 100/63 01/09/19 09:19 O2 Sat by Pulse Oximetry (%) labs pending Assessment: 01/09/19 09:27 withdrawal symptom Plan: continue detox
[2019-01-09] MEDS ORDERED: METHADONE HCL 5 MG TABLET (FOR DETOX USE ONLY) PO ONE (10:00)
[2019-01-09] MEDS: PRENATAL VITAMINS W/ FOLIC ACID TABLET (FP) PO SCH (10:28)
[2019-01-09] MEDS: NICOTINE 14 MG/24 HOURS TOPICAL PATCH TD SCH (10:32)
[2019-01-09] MEDS ORDERED: THIAMINE HCL 100 MG TABLET (FP) PO SCH (22:00)
[2019-01-10] MEDS: chlordiazePOXIDE HCL 25 MG CAPSULE PO SCH ×2 (07:06→11:23)
[2019-01-10] MEDS ORDERED: METHADONE HCL 10 MG TABLET (FOR DETOX USE ONLY) PO ONE (10:00)
--- NOTE | 2019-01-10 11:22 | PN ---
[facility] CIWA - CIWA Score Nausea/Vomitin-Mild Nausea/No Vomiting Muscle Tremors: 1-None Visible, but [place] Anxiety: 1-Mildly Anxious Agitation: 1-Slight > Activity Paroxysmal Sweats: 1-Minimal Palms Moist Orientation: 0-Oriented Tacttile Disturbances: 0-None Auditory Disturbances: 0-None Visual Disturbances: 0-None Headache: 1-Very Mild CIWA-Ar Total Score: 6 BHS COWS - Scale Resting Pulse: 1= [place] 81-100 Sweatin= Chills/Flushing Restless Observation: 1= Difficult to Sit Still Pupil Size: 0= Normal to Room Light Bone or Joint Aches: 1= Mild Discomfort Runny Nose/ Eye Tearin= Nasal Congestion GI Upset > 30mins: 0= None Tremor Observation of Outstretched Hands: 1= Tremor [place], Not Seen Yawning Observation: 0= None Anxiety or Irritability: 1=Feels Anxious/Irritable Goose Flesh Skin: 3=[place] COWS Score: 10 S Progress Note (SOAP) Subjective: pt without complaints, here for alcohol and heroin detox O: Vital Signs - 24 hr 01/09/19 01/09/19 01/09/19 14:14 17:21 21:36 Temperature 97.9 F 98.1 F 96.3 F L Pulse Rate 56 L 64 101 H Respiratory 18 18 18 Rate Blood Pressure 138/72 104/74 129/87 01/10/19 01/10/19 01/10/19 00:30 03:30 07:20 Temperature 97.2 F L Pulse Rate 61 Respiratory 18 18 18 Rate Blood Pressure 118/82 01/10/19 09:31 Temperature 97.7 F Pulse Rate 64 Respiratory 16 Rate Blood Pressure 118/89 labs pending a/p: continue alcohol and heroin detox protocols pt stable and doing well with meds
[2019-01-10] MEDS: NICOTINE 14 MG/24 HOURS TOPICAL PATCH TD SCH (11:23)
[2019-01-10] MEDS: PRENATAL VITAMINS W/ FOLIC ACID TABLET (FP) PO SCH (11:23)
[2019-01-10 11:41] LABS: HEMATOCRIT 45.6 % (35.4-49); HEMOGLOBIN 15.5 GM/dL (11.7-16.9); MCH 30.2 pg (25.7-33.7); MCHC 33.9 g/dl (32.0-35.9); MEAN PLT VOLUME 7.5 fl (7.5-11.1); PLATELET COUNT 320 K/MM3 (134-434); RBC 5.12 M/mm3 (4.00-5.60); RDW 14.6 % (11.9-15.9); WHITE BLOOD COUNT 7.8 K/mm3 (4.0-10.0)
[2019-01-10 12:16] LABS: ALBUMIN 3.6 g/dl (3.4-5.0); ALK PHOS 110 U/L (45-117); ANION GAP 7 MMOL/L (8-16); BILIRUBIN,TOTAL 0.7 mg/dL (0.2-1); BLOOD UREA NITROGEN 8 mg/dL (7-18); CALCIUM 9.1 mg/dL (8.5-10.1); CHLORIDE 102 mmol/L (98-107); CO2 27 mmol/L (21-32); CREATININE 0.7 mg/dL (0.55-1.3); GLUCOSE,RANDOM 87 mg/dL (74-106); POTASSIUM 4.2 mmol/L (3.5-5.1); SGOT/AST 9 U/L (15-37); SGPT/ALT 13 U/L (13-61); SODIUM 136 mmol/L (136-145); TOT PROT 6.7 g/dl (6.4-8.2)
[2019-01-10 14:09] VITALS: BP 132/95; PULSE 73; TEMP 98.2
--- NOTE | 2019-01-10 14:47 | DS ---
[facility] Detox Discharge Summary Admission Date: 01/08/19 Discharge Date: 01/10/19 - History Additional Comments: pt states his sister was in an accident and needs to leave. Leaving before completing detox. AMA discharge - Physical Exam Results Vital Signs: Vital Signs Temperature 98.2 F 01/10/19 14:09 Pulse Rate 73 01/10/19 14:09 Respiratory Rate 18 01/10/19 14:09 Blood Pressure 132/95 01/10/19 14:09 O2 Sat by Pulse Oximetry (%) - Medication Discharge Medications: Ambulatory Orders Albuterol Sulfate Inhaler - [Ventolin HFA Inhaler -] 1 - 2 inh PO QID #1 inhaler 12/18/18 - AMA Did Patient Leave Against Medical Advice: Yes
[2019-01-10] MEDS ORDERED: chlordiazePOXIDE HCL 10 MG CAPSULE PO PRN (23:00)
[2019-01-10] MEDS ORDERED: chlordiazePOXIDE HCL 10 MG CAPSULE PO SCH (23:00)
[2019-01-11] MEDS ORDERED: METHADONE HCL 5 MG TABLET (FOR DETOX USE ONLY) PO ONE (06:00)
[2019-01-11] MEDS ORDERED: chlordiazePOXIDE HCL 10 MG CAPSULE PO SCH (23:00)
== END 2019-01-10 14:35 | disposition left against medical advice (07) | DRG 770 ==
LOC: YASAS 14:56 → Y6N 17:41
PROVIDERS: ADMIT Surgery; ATTEND Surgery
PROC: HZ2ZZZZ Detoxification Services for Substance Abuse Treatment (ICD-10-PCS; principal; 2019-01-08)
DX: F11.23 Opioid dependence with withdrawal (principal); F10.230 Alcohol dependence with withdrawal, uncomplicated; F31.9 Bipolar disorder, unspecified; M54.30 Sciatica, unspecified side; R63.4 Abnormal weight loss; Z68.25 Body mass index [BMI] 25.0-25.9, adult; Z91.89 Other specified personal risk factors, not elsewhere classified; Z91.013 Allergy to seafood; Z88.0 Allergy status to penicillin
CPT/HCPCS: 36415; 80053; 85027; 86593